=== PATIENT | female | born 1990 | race Caucasian/White ===

== ENCOUNTER 2020-05-17 12:25 | Emergency (ER) | payer OTHER, SELFPAY ==
--- NOTE | 2020-05-17 | ECG_ITS ---
Test Reason : PALPATATIONS Blood Pressure : / mmHG Vent. Rate : 080 BPM Atrial Rate : 080 BPM P-R Int : 152 ms QRS Dur : 086 ms QT Int : 396 ms P-R-T Axes : 063 -24 015 degrees QTc Int : 456 ms Normal sinus rhythm Left axis deviation Nonspecific T wave changes Abnormal ECG When compared with ECG of 21-FEB-2018 18:21, No significant change was found Referred By: Generic ED Physician Electronically Signed By:Lamont Blount
[2020-05-17 13:20] VITALS: BP 145/84; PULSE 101; RESP 16; TEMP 36.9; O2SAT 99; BMI 45.1
[2020-05-17 13:24] VITALS: BP 145/84; PULSE 101; RESP 16; TEMP 36.9; O2SAT 99
--- NOTE | 2020-05-17 13:33 | ED_ITS ---
HPI - Chest Pain General Chief Complaint: Chest Pain Stated Complaint: palpitations Time Seen by Provider: 05/17/20 13:33 Source: patient Mode of arrival: ambulatory Limitations: no limitations History of Present Illness HPI narrative: 30-year-old female with history of hypomanic, hypokalemia, anxiety with history of chest pains in the setting of anxiety presenting with complaint of 3 days of intermittent chest pain. Does report she has had some increase in social stressors. MD complaint: chest pain Onset: during rest Pain radiation: none Related Data Previous Rx's Medication Instructions Recorded hydroxyzine HCl 25 mg PO BID PRN #14 tab 05/17/20 magnesium 250 mg PO DAILY 10 Days #10 tab 05/17/20 Allergies Allergy/AdvReac Type Severity Reaction Status Date / Time No Known Allergies Allergy Unverified 01/26/20 16:46 Review of Systems Review of Systems: Constitutional: No Weight loss, No Fever, No Chills, No Night Sweats, No Fatigue, No Malaise ENT/Mouth: No Hearing loss, No Ear Pain, No Nasal Congestion, No Sinus Pain, No Hoarseness, No sore throat, No Rhinorrhea, No Swallowing Difficulty Eyes: No Eye Pain, No Swelling, No Redness, No Foreign Body, No Discharge, No Vision Changes Cardiovascular: + Chest Pain, No SOB, No Dyspnea on Exertion, No Orthopnea, No Edema, No Palpitations Respiratory: No Cough, No Sputum, No Wheezing, No Smoke Exposure, No Dyspnea Gastrointestinal: No Nausea, No Vomiting, No Diarrhea, No Constipation, No abdominal Pain Genitourinary: no irregular bleeding, No Dysuria, No Urinary Frequency, No Ramses turia, No Urinary Incontinence, No Urgency, No Flank Pain Musculoskeletal: No joint pain, No Myalgias, No Joint Swelling Skin: No Skin Lesions, No rash Neuro: No Weakness, No Numbness, No Paresthesias, No Loss of Consciousness, No Dizziness, No Headache Psych: + Anxiety generally about worldly and social, No Depression, No SI/HI/AH/VH, No Social Issues Heme/Lymph: No Bruising, No Bleeding,No Lymphadenopathy Endocrine: No Polyuria, No Polydipsia, No Temperature Intolerance Yes all other systems are reviewed and are negative [facility] Past Medical History Medical History (Updated 05/18/20 @ 00:00 by Background Daemon) No known health problems Social History Social History Alcohol intake: never Smoking Status: Never smoker Smoked in Last 30 Days: No Use of substances other than those prescribed or required for medical reasons: No Advance Directives: No Advance Directives Information Provided: No Physical Exam Vital Signs: Vital Signs: Last Vital Signs Temp 98.3 F 05/17/20 17:14 Pulse 100 05/17/20 17:14 Resp 16 05/17/20 17:14 BP 145/78 H 05/17/20 17:14 Pulse Ox 99 05/17/20 17:14 Body Mass Index 45.1 Reviewed Const: General: cooperative and healthy appearing; No acute distress or intoxicated appearing Nutritional Appearance: average body habitus Orientation/consciousness: patient oriented x3 HENMT: Head: Yes normal to inspection Ears: hearing grossly normal bilaterally Eyes: General: appearance normal, both eyes and all related structures Visual García: normal visual garcía by confrontation Neck: Neck: Yes normal visual inspection, No positive Brudzinski's sign, No positive Kernig's sign and No tender Thyroid: Thyroid normal Chest: Chest palpation & inspection: normal inspection of the chest Resp: Effort & Inspection: normal respiratory effort Auscultation: clear to auscultation bilaterally Cardio: Jugular venous distension: no JVD Rate: regular rate Rhythm: regular rhythm Heart sounds: S1 normal heart sound present and S2 normal heart sound present GI: Inspection: Yes normal to inspection Percussion: Yes normal to percussion Auscultation: normal bowel sounds : General: Yes no CVA tenderness Back/Spine/Pelvis: Back: no CVA tenderness Skin: General skin exam: no rashes or lesions noted Neuro: General: patient oriented x3 Extrem: General: Yes normal to inspection MDM - Chest Pain MDM Narrative Medical decision making narrative: Perc negative Heart score 0 Has been normal sinus rhythm without ectopy or arrhythmia on the bedside monitor for past 2-1/2 hours Lab work shows mild hypo Mag which she has a history of being followed for this, was post been supplement she ran out. Otherwise workup overall stable per his request something for anxiety bedtime. Differential Diagnosis Differential diagnosis: Likely atypical chest pain, costochondritis and chest pain; Unlikely fracture of rib, pneumothorax, stable angina, unstable angina pectoris, st elevation myocardial infarction and biliary colic Medical Records Data Attestation: I reviewed the patient's medical records. Lab Data Attestation: I reviewed the patient's lab results. Result diagrams: 05/17/20 14:13 05/17/20 14:13 Labs: Lab Results 05/17/20 05/17/20 05/17/20 Range/Units 14:13 14:13 14:13 WBC 11.0 H (4.8-10.8) X10*3/uL RBC 4.29 (4.20-5.50) X10*6/uL Hgb 11.8 L (12.0-16.0) g/dl Hct 36.6 L (37-47) % MCV 85.3 (80-98) fL MCH 27.5 (27.0-33.0) pg MCHC 32.2 (31.0-35.0) g/dl RDW 13.4 (11.0-16.0) % Plt Count 263 (160-400) X10*3/uL MPV 9.5 (9.4-12.3) fL Immature Gran % (Auto) 0.6 H (0.0-0.4) % Neut % (Auto) 76.6 H (45-73) % Lymph % (Auto) 17.8 L (20-40) % Dickenson % (Auto) 4.4 (2-11) % Eos % (Auto) 0.3 (0-4) % Baso % (Auto) 0.3 (0-2) % Lymph # (Auto) 2.0 (1.2-4.9) X10*3/uL Dickenson # (Auto) 0.5 (0.1-1.2) X10*3/uL Eos # (Auto) 0.0 (0.0-0.4) X10*3/uL Baso # (Auto) 0.0 (0.0-0.2) X10*3/uL Abs Immat Gran (auto) 0.07 H (0.00-0.03) X10*3/uL Absolute Neuts (auto) 8.4 H (2.0-8.3) X10*3/uL Absolute Nucleated RBC 0.000 (0.0-0.012) X10*3/uL Nucleated RBC % (auto) 0.0 (0.0-0.2) /100WBC Sodium 142 (135-145) mmol/L Potassium 3.5 (3.3-5.1) mmol/l Chloride 106 (96-108) mmol/L Carbon Dioxide 26 (22-29) mmol/L Anion Gap 14 (12-20) BUN 9 (9-16) mg/dL Creatinine 0.61 (0.5-1.4) mg/dL Estim Creat Clear Calc 166.9 Estimated GFR > 60 Random Glucose 87 (60-115) mg/dL Calcium 9.0 (8.4-10.2) mg/dL Magnesium 1.4 L* (1.6-2.6) mg/dL Total Bilirubin 0.5 (0.0-1.0) mg/dL AST 21 (5-31) U/L ALT 17 (0-31) U/L Alkaline Phosphatase 73 (39-117) U/L Troponin I High Sens < 3.5 (<3.5-17.0) ng/L Total Protein 7.7 (6.5-8.0) g/dL Albumin 4.2 (3.5-5.0) g/dL Urine Color Urine Appearance Urine pH (5.0-8.0) Ur Specific Scheller (1.005-1.025) Urine Protein (NEG-TRACE) MG/DL Urine Glucose (UA) (NEG) MG/DL Urine Ketones (NEG) MG/DL Urine Blood (NEG) Urine Nitrite (NEG) Ur Leukocyte Esterase (NEG) Urine RBC (0) /HPF Urine WBC (0-4) /HPF Ur Squamous Epith Cells /LPF Urine Bacteria /LPF Urine Test (NEGATIVE) Urine Opiates Screen (Not Detect) Ur Barbiturates Screen (Not Detect) Ur Phencyclidine Scrn (Not Detect) Ur Amphetamines Screen (Not Detect) U Benzodiazepines Scrn (Not Detect) Urine Cocaine Screen (Not Detect) U Marijuana (THC) Screen (Not Detect) Coronavirus (PCR) (Negative) Influenza Type A (PCR) (Negative) Influenza Type B (PCR) (Negative) RSV RNA Qual (PCR) (Negative) 05/17/20 05/17/20 05/17/20 Range/Units 14:13 14:14 14:14 WBC (4.8-10.8) X10*3/uL RBC (4.20-5.50) X10*6/uL Hgb (12.0-16.0) g/dl Hct (37-47) % MCV (80-98) fL MCH (27.0-33.0) pg MCHC (31.0-35.0) g/dl RDW (11.0-16.0) % Plt Count (160-400) X10*3/uL MPV (9.4-12.3) fL Immature Gran % (Auto) (0.0-0.4) % Neut % (Auto) (45-73) % Lymph % (Auto) (20-40) % Dickenson % (Auto) (2-11) % Eos % (Auto) (0-4) % Baso % (Auto) (0-2) % Lymph # (Auto) (1.2-4.9) X10*3/uL Dickenson # (Auto) (0.1-1.2) X10*3/uL Eos # (Auto) (0.0-0.4) X10*3/uL Baso # (Auto) (0.0-0.2) X10*3/uL Abs Immat Gran (auto) (0.00-0.03) X10*3/uL Absolute Neuts (auto) (2.0-8.3) X10*3/uL Absolute Nucleated RBC (0.0-0.012) X10*3/uL Nucleated RBC % (auto) (0.0-0.2) /100WBC Sodium (135-145) mmol/L Potassium (3.3-5.1) mmol/l Chloride (96-108) mmol/L Carbon Dioxide (22-29) mmol/L Anion Gap (12-20) BUN (9-16) mg/dL Creatinine (0.5-1.4) mg/dL Estim Creat Clear Calc Estimated GFR Random Glucose (60-115) mg/dL Calcium (8.4-10.2) mg/dL Magnesium (1.6-2.6) mg/dL Total Bilirubin (0.0-1.0) mg/dL AST (5-31) U/L ALT (0-31) U/L Alkaline Phosphatase (39-117) U/L Troponin I High Sens (<3.5-17.0) ng/L Total Protein (6.5-8.0) g/dL Albumin (3.5-5.0) g/dL Urine Color RED Urine Appearance CLOUDY Urine pH 6.0 (5.0-8.0) Ur Specific Scheller 1.010 (1.005-1.025) Urine Protein 1+ H (NEG-TRACE) MG/DL Urine Glucose (UA) NEG (NEG) MG/DL Urine Ketones NEG (NEG) MG/DL Urine Blood 3+ H (NEG) Urine Nitrite NEG (NEG) Ur Leukocyte Esterase TRACE H (NEG) Urine RBC 50-75 H (0) /HPF Urine WBC 5-9 H (0-4) /HPF Ur Squamous Epith Cells 1+ /LPF Urine Bacteria NONE /LPF Urine Test NEGATIVE (NEGATIVE) Urine Opiates Screen Not Detected (Not Detect) Ur Barbiturates Screen Not Detected (Not Detect) Ur Phencyclidine Scrn Not Detected (Not Detect) Ur Amphetamines Screen Not Detected (Not Detect) U Benzodiazepines Scrn Not Detected (Not Detect) Urine Cocaine Screen Not Detected (Not Detect) U Marijuana (THC) Screen Not Detected (Not Detect) Coronavirus (PCR) NEGATIVE (Negative) Influenza Type A (PCR) NEGATIVE (Negative) Influenza Type B (PCR) NEGATIVE (Negative) RSV RNA Qual (PCR) NEGATIVE (Negative) Imaging Data Chest x-ray: Radiologist's impression: [place] [id number] XRay Report Signed Patient: Saba IsabelMR#: [id number] : 1990Acct:[id number] Age/Sex: 30 / FADM Date: 05/17/20 Loc: .ED Attending Dr: Ordering Physician: Alberto Young NP Date of Service: 05/17/20 Procedure(s): XR chest 1V Accession Number(s): [id number] cc: Alberto Young COORDINATE MEASURING EQUIPMENT OPERATOR~ EXAMINATION: XR CHEST CLINICAL INFORMATION: Chest pain COMPARISON: 02/21/2018 TECHNIQUE: Frontal view of the chest was obtained. FINDINGS: Lungs are hypoinflated. Allowing for that, no significant abnormalities seen involving the heart lungs mediastinum or bony thorax. XR/XR chest 1V IMPRESSION: No acute intrathoracic disease. Dictated By:CINDY ALLEN MD Signed By:<Electronically signed by CINDY ALLEN MD in OV>05/17/20 1404 DD/ 1338 TD/TT: [employer] Estimator: ELIANA ECG Data ECG #1: Interpretation: Normal sinus rhythm Left axis deviation Nonspecific T wave changes Abnormal ECG When compared with ECG of 21-FEB-2018 18:21, No significant change was found Discharge Plan Discharge Clinical Impression: Atypical chest pain, Hypomagnesemia, Anxiety Patient Disposition: Home, Self-Care Instructions: Chest Pain (ED), Hypomagnesemia (ED) Additional Instructions: Drink plenty fluids Take medication prescribed Avoid any triggers as discussed Follow-up as discussed Return if any concerns or worsening symptoms Thank you Prescriptions: New magnesium 250 mg tablet 250 mg PO DAILY 10 Days Qty: 10 RF: 0 hydroxyzine HCl 25 mg tablet 25 mg PO BID PRN (Reason: anxiety) Qty: 14 RF: 0 Referrals: Brendan Gonzales PA [Primary Care Provider] - 1 week Interventions: ED Discharge Assessment Last Done: 05/17/20 17:15 Discharge Date/Time: 05/17/20 17:29
--- NOTE | 2020-05-17 13:38 | XR_ITS ---
EXAMINATION: XR CHEST CLINICAL INFORMATION: Chest pain COMPARISON: 02/21/2018 TECHNIQUE: Frontal view of the chest was obtained. FINDINGS: Lungs are hypoinflated. Allowing for that, no significant abnormalities seen involving the heart lungs mediastinum or bony thorax. XR/XR chest 1V IMPRESSION: No acute intrathoracic disease.
[2020-05-17 14:27] LABS: Basophils Percent Auto 0.3 % (0-2); Eosinophils Percent Auto 0.3 % (0-4); Hematocrit 36.6 % (37-47); Hemoglobin 11.8 g/dl (12.0-16.0); Imm Gran Abs Auto 0.07 X10*3/uL (0.00-0.03); Imm Gran Pct Auto 0.6 % (0.0-0.4); Lymphocytes Percent Auto 17.8 % (20-40); MANUAL DIFF FLAG NO; Mean Corpuscular HGB Conc 32.2 g/dl (31.0-35.0); Mean Corpuscular Hemoglobin 27.5 pg (27.0-33.0); Mean Corpuscular Volume 85.3 fL (80-98); Mean Platelet Volume 9.5 fL (9.4-12.3); Monocytes Absolute Auto 0.5 X10*3/uL (0.1-1.2); Monocytes Percent Auto 4.4 % (2-11); Neutrophils Absolute Auto 8.4 X10*3/uL (2.0-8.3); Neutrophils Percent Auto 76.6 % (45-73); Platelet Count 263 X10*3/uL (160-400); Red Blood Count 4.29 X10*6/uL (4.20-5.50); Red Cell Distribution Width 13.4 % (11.0-16.0)
[2020-05-17 14:28] LABS: Glucose Urine UA NEG (NEG); Leukocyte Esterase Urine TRACE (NEG); Nitrite Urine NEG (NEG); Urine Blood 3+ (NEG); Urine Ketones NEG (NEG); Urine Protein 1+ MG/DL (NEG-TRACE)
[2020-05-17 14:33] LABS: UPreg QC Valid YES; Urine Pregnancy NEGATIVE (NEGATIVE)
[2020-05-17 14:36] LABS: Appearance Urine CLOUDY; Color Urine RED
[2020-05-17 14:37] LABS: RBC Urine 50-75 /HPF (0); Squamous Epithelial Cell Urine 1+ /LPF
[2020-05-17 14:52] LABS: Troponin-I High Sensitivity < 3.5 ng/L (<3.5-17.0)
[2020-05-17 14:59] LABS: Alanine Aminotransferase 17 U/L (0-31); Albumin Level 4.2 g/dL (3.5-5.0); Alkaline Phosphatase 73 U/L (39-117); Anion Gap 14 (12-20); Aspartate Amino Transferase 21 U/L (5-31); Bilirubin Total 0.5 mg/dL (0.0-1.0); Blood Urea Nitrogen 9 mg/dL (9-16); Carbon Dioxide 26 mmol/L (22-29); Chloride 106 mmol/L (96-108); Creatinine Clr Calc Pharmacy 166.9; Estimated Glomerular Filt Rate > 60; Glucose Random 87 mg/dL (60-115); Magnesium 1.4 mg/dL (1.6-2.6); Potassium 3.5 mmol/l (3.3-5.1); Sodium 142 mmol/L (135-145); Total Protein 7.7 g/dL (6.5-8.0)
[2020-05-17 15:00] LABS: Influenza A PCR NEGATIVE (Negative); Influenza B PCR NEGATIVE (Negative); Resp Syncy Virus RNA Qual PCR NEGATIVE (Negative); SARS COV2 PCR INHOUSE NEGATIVE (Negative)
[2020-05-17 15:03] LABS: Amphetamine Screen Urine Not Detected (Not Detect); Benzodiazepines Screen Urine Not Detected (Not Detect); Cannabinoid Screen Urine Not Detected (Not Detect); Cocaine Screen Urine Not Detected (Not Detect); Opiate Screen Urine Not Detected (Not Detect); Phencyclidine Screen Urine Not Detected (Not Detect)
[2020-05-17 15:05] LABS: Barbiturates, Urine Not Detected (Not Detect)
[2020-05-17 15:34] VITALS: BP 139/79; PULSE 93; RESP 16; TEMP 36.8; O2SAT 99
[2020-05-17 17:14] VITALS: BP 145/78; PULSE 100; RESP 16; TEMP 36.8; O2SAT 99
== END 2020-05-17 17:29 | disposition home or self-care (01) ==
PROVIDERS: Nurse Practitioner Primary Care; Emergency Provider Emergency Medicine Emergency Medical Services; PCP Physician Assistant Medical
DX: R07.89 Other chest pain (principal); E83.42 Hypomagnesemia; F41.9 Anxiety disorder, unspecified; Z20.828 Contact with and (suspected) exposure to other viral communicable diseases
CPT/HCPCS: 0241U; 36415; 71045; 80053; 80307; 81001; 81025; 83735; 84484; 85025; 87086; 93005; 99284

== ENCOUNTER 2020-06-12 19:02 | Emergency (ER) | payer OTHER, MEDICAID, SELFPAY ==
--- NOTE | 2020-06-12 19:10 | ECG_ITS ---
Test Reason : CHEST PALP Blood Pressure : / mmHG Vent. Rate : 088 BPM Atrial Rate : 088 BPM P-R Int : 144 ms QRS Dur : 086 ms QT Int : 380 ms P-R-T Axes : 050 -23 032 degrees QTc Int : 459 ms Normal sinus rhythm Low voltage QRS Borderline ECG When compared with ECG of 17-MAY-2020 12:33, No significant change was found Referred By: Irineo Jauregui Electronically Signed By:SIDNEY LEE MD
--- NOTE | 2020-06-12 19:10 | XR_ITS ---
EXAMINATION: XR CHEST CLINICAL INFORMATION: Palpitations COMPARISON: 05/17/2020 TECHNIQUE: Frontal view of the chest was obtained. FINDINGS: The cardiomediastinal silhouette is within normal limits. The lungs are well expanded. There is no focal consolidation, edema, or effusion. No pneumothorax. No acute osseous abnormality. XR/XR chest 1V IMPRESSION: No acute process seen.
--- NOTE | 2020-06-12 19:13 | ED.GENADULT ---
HPI - General Adult General Chief complaint: Arrhythmia/Palpitations <CARISSA Carrasquillo - Last Filed: 06/12/20 19:14> Stated complaint: chest palpitations <CARISSA Carrasquillo - Last Filed: 06/12/20 19:14> Time Seen by Provider: 06/12/20 19:10 <CARISSA Carrasquillo - Last Filed: 06/12/20 19:14> Source: patient <Nat Arreola MD - Last Filed: 06/13/20 00:39> Mode of arrival: ambulatory <Nat Arreola MD - Last Filed: 06/13/20 00:39> History of Present Illness HPI narrative: This is a 30-year-old female with history palpitations and states that she had an episode this evening without associated headaches, dizziness, shortness of breath, nausea, or diaphoresis that lasted for a very brief period time. Patient was seen here in the emergency department approximately 2 weeks ago for the same and has followed up with her primary care provider who prescribed her with hydroxyzine as well as referring her to Cardiology. Cardiology placed her on a Holter monitor which she turned in this past Thursday and has not been informed of results. In addition, her primary care provider also gave her referral to speak with a therapist. Patient does have anxiety over taking medications which has prevented her from taking the hydroxyzine when she is experiencing these palpitations. She denies any caffeinated products. No recent history of long car rides or plane trips, hemoptysis, estrogen supplementation, personal history of cancer, recent surgery or bed bound state, calf pain or calf swelling. Otherwise, patient denies new cough, sore throat, was tested for COVID-19 2 weeks ago and found to be negative. Patient is noted to have a chronic issue with hypo magnesemia for which she takes iiyd-tji-btqiyed magnesium oxide but is noted to have been low levels to include today as well as 2 weeks ago. <Nat Arreola MD - Last Filed: 06/13/20 00:39> Related Data Home medications: Previous Rx's Medication Instructions Recorded hydroxyzine HCl 25 mg PO BID PRN #14 tab 05/17/20 magnesium 250 mg PO DAILY 10 Days #10 tab 05/17/20 <CARISSA Carrasquillo - Last Filed: 06/12/20 19:14> Allergies/adverse reactions: Allergies Allergy/AdvReac Type Severity Reaction Status Date / Time No Known Allergies Allergy Verified 06/12/20 21:00 <CARISSA Carrasquillo - Last Filed: 06/12/20 19:14> Review of Systems Review of Systems: Pertinent positives and negatives as stated in HPI 10 point review systems is otherwise negative. <Nat Arreola MD - Last Filed: 06/13/20 00:39> PMFSH Past Medical History Source: nursing notes reviewed <Nat Arreola MD - Last Filed: 06/13/20 00:39> Medical History: Medical History (Updated 06/13/20 @ 00:38 by Nat Arreola MD) Anxiety Hypomagnesemia No known health problems Palpitations <CARISSA Carrasquillo - Last Filed: 06/12/20 19:14> Social History Social History: Social History Alcohol intake: never Smoking Status: Never smoker Advance Directives: No Advance Directives Information Provided: Yes <CARISSA Carrasquillo - Last Filed: 06/12/20 19:14> Physical Exam Vital Signs: Vital Signs: Last Vital Signs Temp 98.2 F 06/12/20 20:54 Pulse 84 06/12/20 23:45 Resp 12 06/12/20 23:45 BP 128/58 L 06/12/20 23:45 Pulse Ox 99 06/12/20 23:45 Body Mass Index 44.2 <CARISSA Carrasquillo - Last Filed: 06/12/20 19:14> Vital Signs: Last Vital Signs Temp 98.2 F 06/12/20 20:54 Pulse 84 06/12/20 23:45 Resp 12 06/12/20 23:45 BP 128/58 L 06/12/20 23:45 Pulse Ox 99 06/12/20 23:45 Body Mass Index 44.2 <Nat Arreola MD - Last Filed: 06/13/20 00:39> VITAL SIGNS: Reviewed. GENERAL: Well developed, well nourished, in no acute distress. NECK: Supple, no adenopathy LUNGS: Normal breath sounds. SpO2<99> CARDIOVASCULAR: Regular rate and rhythm without noted murmurs, no JVD or lower extremity edema. ABDOMEN: Obese, Soft, non-tender, non-distended with bowel sounds. EXTREMITIES: No cyanosis, clubbing or edema. NEUROLOGIC: Alert and oriented x 4. <Nat Arreola MD - Last Filed: 06/13/20 00:39> Course Course Course Narrative: 30 yold female presents to the ED for palpitations for the past 2 weeks. Rapid medical screening will be done. History, physical exam, and decision making will be done by ED provider. <CARISSA Carrasquillo - Last Filed: 06/12/20 19:14> This is a 30-year-old female with history and clinical presentation consistent with anxiety, but infection, anemia, cardiac ischemia is ruled out. Doubt PE given history an absence of clinical findings. Review of all investigations yields no acute findings other than a very mild elevation of D-dimer which is considered to be insignificant, however shared decision making was held with the patient and risks and benefits were reviewed given the low likelihood of PE. On re-evaluation after receiving magnesium sulfate for low magnesium level, patient has decided she would like to proceed with a CTA of the chest to rule out PE. There is no evidence of right heart strain on EKG, no elevated temperature, no associated shortness of breath, history is inconsistent with etiologies/risks to contribute to a PE or DVT. <Nat Arreola MD - Last Filed: 06/13/20 00:39> Reevaluation(s) Reevaluation #1: Patient unable to tolerate the CT exam. Will provide 0.5 mg of Ativan and re-attempt. <Nat Arreola MD - Last Filed: 06/13/20 00:39> Time: 23:33 <Nat Arreola MD - Last Filed: 06/13/20 00:39> Reevaluation #2: On re-evaluation magnesium is within normal limits and patient declines CT exam despite being offered Ativan as she states she is far too anxious to accept the Ativan. She was reassured that there is low likelihood of PE but that it is not 0 %. <Nat Arreola MD - Last Filed: 06/13/20 00:39> Time: 00:36 <Nat Arreola MD - Last Filed: 06/13/20 00:39> Medical Decision Making Lab Data Result diagrams: : 06/12/20 19:21 06/12/20 19:21 <CARISSA Carrasquillo - Last Filed: 06/12/20 19:14> Labs: Lab Results 06/12/20 06/12/20 06/12/20 Range/Units 19:21 19:21 19:21 WBC 11.9 H (4.8-10.8) X10*3/uL RBC 4.41 (4.20-5.50) X10*6/uL Hgb 12.0 (12.0-16.0) g/dl Hct 37.7 (37-47) % MCV 85.5 (80-98) fL MCH 27.2 (27.0-33.0) pg MCHC 31.8 (31.0-35.0) g/dl RDW 13.5 (11.0-16.0) % Plt Count 267 (160-400) X10*3/uL MPV 9.6 (9.4-12.3) fL Immature Gran % (Auto) 0.3 (0.0-0.4) % Neut % (Auto) 66.3 (45-73) % Lymph % (Auto) 26.6 (20-40) % [place] % (Auto) 5.8 (2-11) % Eos % (Auto) 0.8 (0-4) % Baso % (Auto) 0.2 (0-2) % Lymph # (Auto) 3.2 (1.2-4.9) X10*3/uL [place] # (Auto) 0.7 (0.1-1.2) X10*3/uL Eos # (Auto) 0.1 (0.0-0.4) X10*3/uL Baso # (Auto) 0.0 (0.0-0.2) X10*3/uL Abs Immat Gran (auto) 0.03 (0.00-0.03) X10*3/uL Absolute Neuts (auto) 7.9 (2.0-8.3) X10*3/uL Absolute Nucleated RBC 0.000 (0.0-0.012) X10*3/uL Nucleated RBC % (auto) 0.0 (0.0-0.2) /100WBC PT 15.8 H (10.8-13.0) SEC INR 1.3 H (0.9-1.1) APTT 35.6 (24.1-38.0) SEC D-Dimer 236 NG/ML Sodium 141 (135-145) mmol/L Potassium 3.8 (3.3-5.1) mmol/L Chloride 104 (96-108) mmol/L Carbon Dioxide 29 (22-29) mmol/L Anion Gap 12 (12-20) BUN 10 (9-16) mg/dL Creatinine 0.68 (0.5-1.4) mg/dL Estim Creat Clear Calc TNP Estimated GFR > 60 Random Glucose 95 (60-115) mg/dL Calcium 9.2 (8.4-10.2) mg/dL Magnesium 1.5 L (1.6-2.6) mg/dL Total Bilirubin 0.2 (0.0-1.0) mg/dL AST 20 (5-31) U/L ALT 14 (0-31) U/L Alkaline Phosphatase 75 (39-117) U/L Troponin I High Sens (<3.5-17.0) ng/L Total Protein 7.5 (6.5-8.0) g/dL Albumin 4.1 (3.5-5.0) g/dL TSH 3.66 (0.32-4.0) uIU/mL Beta HCG, Quant < 2 mIU/mL Urine Color Urine Appearance Urine pH (5.0-8.0) Ur Specific [place] (1.005-1.025) Urine Protein (NEG-TRACE) MG/DL Urine Glucose (UA) (NEG) MG/DL Urine Ketones (NEG) MG/DL Urine Blood (NEG) Urine Nitrite (NEG) Ur Leukocyte Esterase (NEG) Urine RBC (0) /HPF Urine WBC (0-4) /HPF Ur Squamous Epith Cells /LPF Urine Bacteria /LPF Urine Test (NEGATIVE) 06/12/20 06/12/20 06/12/20 Range/Units 19:21 22:47 23:38 WBC (4.8-10.8) X10*3/uL RBC (4.20-5.50) X10*6/uL Hgb (12.0-16.0) g/dl Hct (37-47) % MCV (80-98) fL MCH (27.0-33.0) pg MCHC (31.0-35.0) g/dl RDW (11.0-16.0) % Plt Count (160-400) X10*3/uL MPV (9.4-12.3) fL Immature Gran % (Auto) (0.0-0.4) % Neut % (Auto) (45-73) % Lymph % (Auto) (20-40) % [place] % (Auto) (2-11) % Eos % (Auto) (0-4) % Baso % (Auto) (0-2) % Lymph # (Auto) (1.2-4.9) X10*3/uL [place] # (Auto) (0.1-1.2) X10*3/uL Eos # (Auto) (0.0-0.4) X10*3/uL Baso # (Auto) (0.0-0.2) X10*3/uL Abs Immat Gran (auto) (0.00-0.03) X10*3/uL Absolute Neuts (auto) (2.0-8.3) X10*3/uL Absolute Nucleated RBC (0.0-0.012) X10*3/uL Nucleated RBC % (auto) (0.0-0.2) /100WBC PT (10.8-13.0) SEC INR (0.9-1.1) APTT (24.1-38.0) SEC D-Dimer NG/ML Sodium (135-145) mmol/L Potassium (3.3-5.1) mmol/L Chloride (96-108) mmol/L Carbon Dioxide (22-29) mmol/L Anion Gap (12-20) BUN (9-16) mg/dL Creatinine (0.5-1.4) mg/dL Estim Creat Clear Calc Estimated GFR Random Glucose (60-115) mg/dL Calcium (8.4-10.2) mg/dL Magnesium 1.8 (1.6-2.6) mg/dL Total Bilirubin (0.0-1.0) mg/dL AST (5-31) U/L ALT (0-31) U/L Alkaline Phosphatase (39-117) U/L Troponin I High Sens < 3.5 (<3.5-17.0) ng/L Total Protein (6.5-8.0) g/dL Albumin (3.5-5.0) g/dL TSH (0.32-4.0) uIU/mL Beta HCG, Quant mIU/mL Urine Color YELLOW Urine Appearance HAZY Urine pH 7.5 (5.0-8.0) Ur Specific [place] 1.020 (1.005-1.025) Urine Protein NEG (NEG-TRACE) MG/DL Urine Glucose (UA) NEG (NEG) MG/DL Urine Ketones NEG (NEG) MG/DL Urine Blood 3+ H (NEG) Urine Nitrite NEG (NEG) Ur Leukocyte Esterase NEG (NEG) Urine RBC 76-150 H (0) /HPF Urine WBC 0 (0-4) /HPF Ur Squamous Epith Cells 1+ /LPF Urine Bacteria 1+ /LPF Urine Test NEGATIVE (NEGATIVE) <CARISSA Carrasquillo - Last Filed: 06/12/20 19:14> Lab Results 06/12/20 06/12/20 06/12/20 Range/Units 19:21 19:21 19:21 WBC 11.9 H (4.8-10.8) X10*3/uL RBC 4.41 (4.20-5.50) X10*6/uL Hgb 12.0 (12.0-16.0) g/dl Hct 37.7 (37-47) % MCV 85.5 (80-98) fL MCH 27.2 (27.0-33.0) pg MCHC 31.8 (31.0-35.0) g/dl RDW 13.5 (11.0-16.0) % Plt Count 267 (160-400) X10*3/uL MPV 9.6 (9.4-12.3) fL Immature Gran % (Auto) 0.3 (0.0-0.4) % Neut % (Auto) 66.3 (45-73) % Lymph % (Auto) 26.6 (20-40) % [place] % (Auto) 5.8 (2-11) % Eos % (Auto) 0.8 (0-4) % Baso % (Auto) 0.2 (0-2) % Lymph # (Auto) 3.2 (1.2-4.9) X10*3/uL [place] # (Auto) 0.7 (0.1-1.2) X10*3/uL Eos # (Auto) 0.1 (0.0-0.4) X10*3/uL Baso # (Auto) 0.0 (0.0-0.2) X10*3/uL Abs Immat Gran (auto) 0.03 (0.00-0.03) X10*3/uL Absolute Neuts (auto) 7.9 (2.0-8.3) X10*3/uL Absolute Nucleated RBC 0.000 (0.0-0.012) X10*3/uL Nucleated RBC % (auto) 0.0 (0.0-0.2) /100WBC PT 15.8 H (10.8-13.0) SEC INR 1.3 H (0.9-1.1) APTT 35.6 (24.1-38.0) SEC D-Dimer 236 NG/ML Sodium 141 (135-145) mmol/L Potassium 3.8 (3.3-5.1) mmol/L Chloride 104 (96-108) mmol/L Carbon Dioxide 29 (22-29) mmol/L Anion Gap 12 (12-20) BUN 10 (9-16) mg/dL Creatinine 0.68 (0.5-1.4) mg/dL Estim Creat Clear Calc TNP Estimated GFR > 60 Random Glucose 95 (60-115) mg/dL Calcium 9.2 (8.4-10.2) mg/dL Magnesium 1.5 L (1.6-2.6) mg/dL Total Bilirubin 0.2 (0.0-1.0) mg/dL AST 20 (5-31) U/L ALT 14 (0-31) U/L Alkaline Phosphatase 75 (39-117) U/L Troponin I High Sens (<3.5-17.0) ng/L Total Protein 7.5 (6.5-8.0) g/dL Albumin 4.1 (3.5-5.0) g/dL TSH 3.66 (0.32-4.0) uIU/mL Beta HCG, Quant < 2 mIU/mL Urine Color Urine Appearance Urine pH (5.0-8.0) Ur Specific [place] (1.005-1.025) Urine Protein (NEG-TRACE) MG/DL Urine Glucose (UA) (NEG) MG/DL Urine Ketones (NEG) MG/DL Urine Blood (NEG) Urine Nitrite (NEG) Ur Leukocyte Esterase (NEG) Urine RBC (0) /HPF Urine WBC (0-4) /HPF Ur Squamous Epith Cells /LPF Urine Bacteria /LPF Urine Test (NEGATIVE) 06/12/20 06/12/20 06/12/20 Range/Units 19:21 22:47 23:38 WBC (4.8-10.8) X10*3/uL RBC (4.20-5.50) X10*6/uL Hgb (12.0-16.0) g/dl Hct (37-47) % MCV (80-98) fL MCH (27.0-33.0) pg MCHC (31.0-35.0) g/dl RDW (11.0-16.0) % Plt Count (160-400) X10*3/uL MPV (9.4-12.3) fL Immature Gran % (Auto) (0.0-0.4) % Neut % (Auto) (45-73) % Lymph % (Auto) (20-40) % [place] % (Auto) (2-11) % Eos % (Auto) (0-4) % Baso % (Auto) (0-2) % Lymph # (Auto) (1.2-4.9) X10*3/uL [place] # (Auto) (0.1-1.2) X10*3/uL Eos # (Auto) (0.0-0.4) X10*3/uL Baso # (Auto) (0.0-0.2) X10*3/uL Abs Immat Gran (auto) (0.00-0.03) X10*3/uL Absolute Neuts (auto) (2.0-8.3) X10*3/uL Absolute Nucleated RBC (0.0-0.012) X10*3/uL Nucleated RBC % (auto) (0.0-0.2) /100WBC PT (10.8-13.0) SEC INR (0.9-1.1) APTT (24.1-38.0) SEC D-Dimer NG/ML Sodium (135-145) mmol/L Potassium (3.3-5.1) mmol/L Chloride (96-108) mmol/L Carbon Dioxide (22-29) mmol/L Anion Gap (12-20) BUN (9-16) mg/dL Creatinine (0.5-1.4) mg/dL Estim Creat Clear Calc Estimated GFR Random Glucose (60-115) mg/dL Calcium (8.4-10.2) mg/dL Magnesium 1.8 (1.6-2.6) mg/dL Total Bilirubin (0.0-1.0) mg/dL AST (5-31) U/L ALT (0-31) U/L Alkaline Phosphatase (39-117) U/L Troponin I High Sens < 3.5 (<3.5-17.0) ng/L Total Protein (6.5-8.0) g/dL Albumin (3.5-5.0) g/dL TSH (0.32-4.0) uIU/mL Beta HCG, Quant mIU/mL Urine Color YELLOW Urine Appearance HAZY Urine pH 7.5 (5.0-8.0) Ur Specific [place] 1.020 (1.005-1.025) Urine Protein NEG (NEG-TRACE) MG/DL Urine Glucose (UA) NEG (NEG) MG/DL Urine Ketones NEG (NEG) MG/DL Urine Blood 3+ H (NEG) Urine Nitrite NEG (NEG) Ur Leukocyte Esterase NEG (NEG) Urine RBC 76-150 H (0) /HPF Urine WBC 0 (0-4) /HPF Ur Squamous Epith Cells 1+ /LPF Urine Bacteria 1+ /LPF Urine Test NEGATIVE (NEGATIVE) <Nat Arreola MD - Last Filed: 06/13/20 00:39> ECG Data Attestation: I personally reviewed and interpreted this ECG as follows: <Nat Arreola MD - Last Filed: 06/13/20 00:39> Prior ECG tracings: available for review (05/17/2020 no acute changes on comparison) <Nat Arreola MD - Last Filed: 06/13/20 00:39> Interpretation: Normal sinus rhythm, HR-88, AL/QRS/QTC are within normal limits. No evidence of right heart strain <Nat Arreola MD - Last Filed: 06/13/20 00:39> Discharge Plan Discharge Clinical Impression: Palpitations, Anxiety, Hypomagnesemia <CARISSA Carrasquillo - Last Filed: 06/12/20 19:14> Patient Disposition: Home, Self-Care <CARISSA Carrasquillo - Last Filed: 06/12/20 19:14> Instructions: Heart Palpitations (ED), Anxiety (ED) <CARISSA Carrasquillo - Last Filed: 06/12/20 19:14> Additional Instructions: Continue all home medications as prescribed. Please continue your follow-up with your primary care provider as well as your retail business analyst for further outpatient workup. <CARISSA Carrasquillo - Last Filed: 06/12/20 19:14> Prescriptions: No Action magnesium 250 mg tablet 250 mg PO DAILY 10 Days Qty: 10 RF: 0 hydroxyzine HCl 25 mg tablet 25 mg PO BID PRN (Reason: anxiety) Qty: 14 RF: 0 <CARISSA Carrasquillo - Last Filed: 06/12/20 19:14> Referrals: Physician,Unknown [Primary Care Provider] - 2 days <CARISSA Carrasquillo - Last Filed: 06/12/20 19:14>
[2020-06-12 19:29] LABS: Basophils Percent Auto 0.2 % (0-2); Eosinophils Absolute Auto 0.1 X10*3/uL (0.0-0.4); Eosinophils Percent Auto 0.8 % (0-4); Hematocrit 37.7 % (37-47); Imm Gran Abs Auto 0.03 X10*3/uL (0.00-0.03); Imm Gran Pct Auto 0.3 % (0.0-0.4); Lymphocytes Absolute Auto 3.2 X10*3/uL (1.2-4.9); Lymphocytes Percent Auto 26.6 % (20-40); MANUAL DIFF FLAG NO; Mean Corpuscular HGB Conc 31.8 g/dl (31.0-35.0); Mean Corpuscular Hemoglobin 27.2 pg (27.0-33.0); Mean Corpuscular Volume 85.5 fL (80-98); Mean Platelet Volume 9.6 fL (9.4-12.3); Monocytes Absolute Auto 0.7 X10*3/uL (0.1-1.2); Monocytes Percent Auto 5.8 % (2-11); Neutrophils Absolute Auto 7.9 X10*3/uL (2.0-8.3); Neutrophils Percent Auto 66.3 % (45-73); Platelet Count 267 X10*3/uL (160-400); Red Blood Count 4.41 X10*6/uL (4.20-5.50); Red Cell Distribution Width 13.5 % (11.0-16.0); White Blood Count 11.9 X10*3/uL (4.8-10.8)
[2020-06-12 19:35] LABS: INTERNATIONAL NORM RATIO 1.3 (0.9-1.1); Prothrombin Time 15.8 SEC (10.8-13.0)
[2020-06-12 19:38] LABS: D Dimer 236 NG/ML; Partial Thromboplastin Time 35.6 SEC (24.1-38.0)
[2020-06-12 19:54] LABS: Alanine Aminotransferase 14 U/L (0-31); Albumin Level 4.1 g/dL (3.5-5.0); Alkaline Phosphatase 75 U/L (39-117); Anion Gap 12 (12-20); Aspartate Amino Transferase 20 U/L (5-31); Bilirubin Total 0.2 mg/dL (0.0-1.0); Blood Urea Nitrogen 10 mg/dL (9-16); Calcium 9.2 mg/dL (8.4-10.2); Carbon Dioxide 29 mmol/L (22-29); Chloride 104 mmol/L (96-108); Estimated Glomerular Filt Rate > 60; Glucose Random 95 mg/dL (60-115); Magnesium 1.5 mg/dL (1.6-2.6); Potassium 3.8 mmol/L (3.3-5.1); Sodium 141 mmol/L (135-145); Total Protein 7.5 g/dL (6.5-8.0)
[2020-06-12 19:58] LABS: Troponin-I High Sensitivity < 3.5 ng/L (<3.5-17.0)
[2020-06-12 20:15] LABS: HCG Quantitative < 2 mIU/mL; Thyroid Stimulating Hormone 3.66 uIU/mL (0.32-4.0)
[2020-06-12 20:54] VITALS: BP 138/69; PULSE 90; RESP 14; TEMP 36.8; O2SAT 99; BMI 44.2
[2020-06-12 21:34] VITALS: PULSE 97
--- NOTE | 2020-06-12 21:34 | PC.NURSE ---
ekg was obtained in waiting room
[2020-06-12] MEDS: hydrOXYzine HCL 25 MG TABLET PO (22:14)
[2020-06-12] MEDS: Magnesium Sulfate/D5W 1 GM/100 ML PIGGYBACK IV (22:15)
[2020-06-12 22:57] LABS: Appearance Urine HAZY; Color Urine YELLOW; Glucose Urine UA NEG (NEG); Leukocyte Esterase Urine NEG (NEG); Nitrite Urine NEG (NEG); PH 7.5 (5.0-8.0); Urine Blood 3+ (NEG); Urine Ketones NEG (NEG); Urine Protein NEG (NEG-TRACE)
[2020-06-12 22:58] LABS: UPreg QC Valid YES
[2020-06-12 22:59] LABS: Urine Pregnancy NEGATIVE (NEGATIVE)
[2020-06-12 23:05] LABS: Bacteria Urine 1+ /LPF; Squamous Epithelial Cell Urine 1+ /LPF; WBC Urine 0 /HPF (0-4)
[2020-06-12] MEDS: 0.9 % Sodium Chloride 1,000 ML 999 ML IV (23:39)
--- NOTE | 2020-06-12 23:42 | PC.NURSE ---
THIS NURSE AT BEDSIDE WHILE PATIENT IS HAVING PALPITATIONS. PVCS NOTED ON MONITOR. DR ROBBINS AWARE.
[2020-06-12 23:45] VITALS: BP 128/58; PULSE 84; RESP 12; O2SAT 99
[2020-06-13 00:05] LABS: Magnesium 1.8 mg/dL (1.6-2.6)
== END 2020-06-13 00:46 | disposition home or self-care (01) ==
PROVIDERS: Physician Assistant; Emergency Provider Student in an Organized Health Care Education/Training Program
DX: R00.2 Palpitations (principal); F41.9 Anxiety disorder, unspecified; E83.42 Hypomagnesemia; Z79.899 Other long term (current) drug therapy
CPT/HCPCS: 36415; 71045; 80053; 81001; 81025; 83735; 84443; 84484; 84702; 85025; 85379; 85610; 85730; 93005; 99284; J3475

== ENCOUNTER 2020-07-16 08:30 | Outpatient (REF) | payer OTHER, SELFPAY | END 2020-07-16 08:31 | disposition home or self-care (01) | LOC: HO.LAB 08:30 | PROVIDERS: Visit Provider Internal Medicine | DX: Z20.822 Contact with and (suspected) exposure to COVID-19 (principal) | CPT/HCPCS: 36415; C9803; U0003; U0005 ==

== ENCOUNTER 2020-10-16 10:16 | Outpatient (REF) | payer OTHER, SELFPAY | END 2020-10-16 10:17 | disposition home or self-care (01) | LOC: HO.LAB 10:16 | PROVIDERS: PCP Physician Assistant Medical; Visit Provider Internal Medicine | DX: Z20.822 Contact with and (suspected) exposure to COVID-19 (principal) | CPT/HCPCS: C9803; U0003; U0005 ==

== ENCOUNTER 2020-10-23 14:07 | Emergency (ER) | payer OTHER, MEDICAID, SELFPAY ==
--- NOTE | ~2020-10-23 | CT_ITS ---
EXAMINATION: CT ANGIOGRAM OF THE CHEST WITH AND WITHOUT CONTRAST (CT PULMONARY ANGIOGRAM FOR PE) CLINICAL INFORMATION: Tachycardia, elevated d-dimer COMPARISON: Chest radiograph 06/12/2020, CTA chest 09/19/2015 TECHNIQUE: Prior to contrast administration, noncontrast localization images were obtained. Subsequently, multidetector volumetric imaging was performed from the thoracic inlet to below the diaphragms following the administration of 71 mL Omnipaque 350 intravenous contrast. No contrast reaction reported Sagittal, coronal, and MIP oblique sagittal reformatted images were obtained on the CT workstation, uploaded to PACS, and reviewed. This CT examination was performed using dose optimization techniques as appropriate, variously including the following: *Automated exposure control *Adjustment of mA and/or kV according to patient size (this includes techniques or standardized protocols for targeted exams where dose is matched to indication/reason for exam; i.e. extremities or head) *Use of iterative reconstruction technique Total exam dose-length product . 49 mGy-cm FINDINGS: Respiratory motion artifact significantly degrades image quality. QUALITY OF STUDY/CONTRAST BOLUS: Satisfactory. PULMONARY ARTERIES: No central or segmental emboli visualized. More distal subsegmental emboli are difficult to exclude given the degree of motion artifact THORACIC AORTA: No aneurysm or dissection. LUNG: Motion artifact in the lungs degrades image quality. There are bilateral patchy consolidative and groundglass opacities. PLEURA: No pleural effusion or pneumothorax. MEDIASTINUM: Normal heart size. No pericardial effusion. No hilar or mediastinal lymphadenopathy. No evidence of septal bowing or right heart strain. CHEST WALL/AXILLA: No axillary or internal mammary lymphadenopathy. OSSEOUS STRUCTURES: No acute or suspicious osseous abnormality. UPPER ABDOMEN: Unremarkable. No reflux of contrast into the hepatic veins to suggest elevated right heart pressures. CT/CT angio chest PE protocol IMPRESSION: Limited exam due to respiratory motion artifact. No central or segmental pulmonary emboli. Bilateral mixed consolidative and groundglass opacities concerning for an underlying infectious process including atypical infectious processes. VTE: negative
[2020-10-23 14:18] VITALS: BP 127/77; PULSE 100; RESP 18; TEMP 36.6; O2SAT 100; BMI 39.8
--- NOTE | 2020-10-23 14:30 | ED_ITS ---
HPI - General Adult General Chief complaint: General Medical Stated complaint: Dizziness, Nausea Time Seen by Provider: 10/23/20 14:30 Related Data Previous Rx's Medication Instructions Recorded hydroxyzine HCl 25 mg PO BID PRN #14 tab 05/17/20 magnesium 250 mg PO DAILY 10 Days #10 tab 05/17/20 Allergies Allergy/AdvReac Type Severity Reaction Status Date / Time No Known Allergies Allergy Verified 06/12/20 21:00 [facility] Past Medical History Medical History (Updated 10/23/20 @ 14:24 by Bernard Porter) Anxiety Hypomagnesemia Palpitations Social History Social History Alcohol intake: never Patient : No Physical Exam Vital Signs: Vital Signs: Last Vital Signs Temp 98 F 10/23/20 14:18 Pulse 57 10/23/20 14:18 Resp 18 10/23/20 14:18 BP 118/58 L 10/23/20 14:18 Pulse Ox 93 10/23/20 14:18 Body Mass Index 47.6 Course Course Course Narrative: -Rapid medical exam. In bathroom had near syncope with nausea/vomiting, drank apple juice and feels better. No head injury or LOC. Feeling better but still anxious. WIll order ekg, poc. Currently COVID + but no SOB/CP and feels like symptoms are improving. Deferred additional HPI, ROS and PE to primary provider. Discharge Plan Discharge Prescriptions: No Action magnesium 250 mg tablet 250 mg PO DAILY 10 Days Qty: 10 RF: 0 hydroxyzine HCl 25 mg tablet 25 mg PO BID PRN (Reason: anxiety) Qty: 14 RF: 0
--- NOTE | 2020-10-23 14:32 | ECG_ITS ---
Test Reason : SYNCOPE Blood Pressure : / mmHG Vent. Rate : 080 BPM Atrial Rate : 080 BPM P-R Int : 160 ms QRS Dur : 082 ms QT Int : 408 ms P-R-T Axes : 053 -28 027 degrees QTc Int : 470 ms Normal sinus rhythm Normal ECG When compared with ECG of 12-JUN-2020 19:15, No significant change was found Referred By: Ana Lilia Meléndez Electronically Signed By:KELLY WILKINSON
--- NOTE | 2020-10-23 17:35 | ED_ITS ---
HPI - Syncope General Chief Complaint: General Medical Stated Complaint: Dizziness, Nausea Time Seen by Provider: 10/23/20 14:30 Source: patient Mode of arrival: ambulatory Limitations: no limitations History of Present Illness HPI narrative: 30-year-old female tested COVID positive approximately 2 weeks ago presents with tachycardia, near syncopal episode, shortness of breath on exertion. MD complaint: felt faint and almost passed out Onset (ago): day(s) (One) -: minutes(s) Prodromal symptoms: lightheaded, palpitations, heart racing, shortness of breath, diaphoresis and nausea/vomiting Witnessed: Yes - by Bystander Context: other (While getting into the shower) Injuries sustained associated with event: none Current symptoms: lightheaded and shortness of breath Related Data Previous Rx's Medication Instructions Recorded hydroxyzine HCl 25 mg PO BID PRN #14 tab 05/17/20 magnesium 250 mg PO DAILY 10 Days #10 tab 05/17/20 Allergies Allergy/AdvReac Type Severity Reaction Status Date / Time No Known Allergies Allergy Verified 06/12/20 21:00 Review of Systems Review of Systems: Constitutional: No Fever, No Chills ENT/Mouth: No Hoarseness, No sore throat, No Rhinorrhea Eyes: No Redness, No Discharge, No Vision Changes Cardiovascular: No Chest Pain, positive SOB, positive Dyspnea on Exertion, positive palpitations, No Edema Respiratory: No Cough, No Sputum, no Wheezing, Gastrointestinal: No Nausea, No Vomiting, No Diarrhea, No abdominal Pain Genitourinary: No Dysuria, No Hematuria Musculoskeletal: No joint pain, No Myalgias Skin: No rash Neuro: No Weakness, No Numbness, No Headache Psych: No anxiety, depression Heme/Lymph: No Bruising, No Bleeding Endocrine: No Polyuria, No Polydipsia Yes all other systems are reviewed and are negative PMFSH Past Medical History Attestation statement: The following information was validated with the patient. Source: old records reviewed Medical History Anxiety Hypomagnesemia Palpitations Social History Social History Alcohol intake: never Advance Directives: No Advance Directives Information Provided: No Patient : No Physical Exam Vital Signs: Vital Signs: Last Vital Signs Temp 98 F 10/23/20 14:18 Pulse 100 10/23/20 14:18 Resp 18 10/23/20 14:18 BP 127/77 10/23/20 14:18 Pulse Ox 100 10/23/20 14:18 Body Mass Index 39.8 Appearance: Alert. Oriented X3. No acute distress. Eyes: Pupils equal, round and reactive to light. ENT: Pharynx normal. Neck: Normal inspection. Neck supple. CVS: Tachycardic heart rate and rhythm. Pulses normal. Respiratory: No respiratory distress. Breath sounds normal. Abdomen: Soft and nontender. Skin: Skin warm and dry. Normal skin color. Normal skin turgor. Extremities: No lower extremity edema. Neuro: No motor deficit. No sensory deficit. Course Course Course Narrative: 30-year-old female presents with positive COVID approximately 2 weeks ago, presents with tachycardia, shortness breath on exertion, and near syncopal episode. D-dimer 223, will order CT PE study. CT PE study negative for clotting, does show findings consistent with COVID-19. Will advise patient to continue to socially isolate as she is symptomatic. No further care at this time. She does understand that if symptoms persist that she needs to be re-evaluated. Patient verbalized understanding of and agrees to plan of care discharge home. MDM - Syncope Differential Diagnosis Differential diagnosis: Likely syncope due to orthostatic hypotension, vasovagal syncope, pulmonary embolism and dehydration Medical Records Attestation: I reviewed the patient's medical records. Lab Data Attestation: I reviewed the patient's lab results. Result diagrams: 10/23/20 18:28 10/23/20 18:28 Labs: Lab Results 10/23/20 10/23/20 10/23/20 Range/Units 17:40 18:28 18:28 WBC 4.7 L (4.8-10.8) X10*3/uL RBC 4.74 (4.20-5.50) X10*6/uL Hgb 13.3 (12.0-16.0) g/dl Hct 40.1 (37-47) % MCV 84.6 (80-98) fL MCH 28.1 (27.0-33.0) pg MCHC 33.2 (31.0-35.0) g/dl RDW 13.3 (11.0-16.0) % Plt Count 170 D (160-400) X10*3/uL MPV 10.1 (9.4-12.3) fL Immature Gran % (Auto) 0.6 H (0.0-0.4) % Neut % (Auto) 58.6 (45-73) % Lymph % (Auto) 34.0 (20-40) % [place] % (Auto) 6.4 (2-11) % Eos % (Auto) 0.2 (0-4) % Baso % (Auto) 0.2 (0-2) % Lymph # (Auto) 1.6 (1.2-4.9) X10*3/uL [place] # (Auto) 0.3 (0.1-1.2) X10*3/uL Eos # (Auto) 0.0 (0.0-0.4) X10*3/uL Baso # (Auto) 0.0 (0.0-0.2) X10*3/uL Abs Immat Gran (auto) 0.03 (0.00-0.03) X10*3/uL Absolute Neuts (auto) 2.7 (2.0-8.3) X10*3/uL Absolute Nucleated RBC 0.000 (0.0-0.012) X10*3/uL Nucleated RBC % (auto) 0.0 (0.0-0.2) /100WBC D-Dimer NG/ML Sodium 143 (135-145) mmol/L Potassium 3.9 (3.3-5.1) mmol/L Chloride 107 (96-108) mmol/L Carbon Dioxide 27 (22-29) mmol/L Anion Gap 13 (12-20) BUN 8 L (9-16) mg/dL Creatinine 0.65 (0.5-1.4) mg/dL Estim Creat Clear Calc 145.6 Estimated GFR > 60 POC Glucose 79 (60-115) mg/dL Random Glucose 96 (60-115) mg/dL Calcium 9.3 (8.4-10.2) mg/dL Urine Color Urine Appearance Urine pH (5.0-8.0) Ur Specific [place] (1.005-1.025) Urine Protein (NEG-TRACE) MG/DL Urine Glucose (UA) (NEG) MG/DL Urine Ketones (NEG) MG/DL Urine Blood (NEG) Urine Nitrite (NEG) Ur Leukocyte Esterase (NEG) Urine RBC (0) /HPF Urine WBC (0-4) /HPF Ur Squamous Epith Cells /LPF Urine Bacteria /LPF Urine Test (NEGATIVE) 10/23/20 10/23/20 10/23/20 Range/Units 18:28 19:09 19:09 WBC (4.8-10.8) X10*3/uL RBC (4.20-5.50) X10*6/uL Hgb (12.0-16.0) g/dl Hct (37-47) % MCV (80-98) fL MCH (27.0-33.0) pg MCHC (31.0-35.0) g/dl RDW (11.0-16.0) % Plt Count (160-400) X10*3/uL MPV (9.4-12.3) fL Immature Gran % (Auto) (0.0-0.4) % Neut % (Auto) (45-73) % Lymph % (Auto) (20-40) % [place] % (Auto) (2-11) % Eos % (Auto) (0-4) % Baso % (Auto) (0-2) % Lymph # (Auto) (1.2-4.9) X10*3/uL [place] # (Auto) (0.1-1.2) X10*3/uL Eos # (Auto) (0.0-0.4) X10*3/uL Baso # (Auto) (0.0-0.2) X10*3/uL Abs Immat Gran (auto) (0.00-0.03) X10*3/uL Absolute Neuts (auto) (2.0-8.3) X10*3/uL Absolute Nucleated RBC (0.0-0.012) X10*3/uL Nucleated RBC % (auto) (0.0-0.2) /100WBC D-Dimer 223 NG/ML Sodium (135-145) mmol/L Potassium (3.3-5.1) mmol/L Chloride (96-108) mmol/L Carbon Dioxide (22-29) mmol/L Anion Gap (12-20) BUN (9-16) mg/dL Creatinine (0.5-1.4) mg/dL Estim Creat Clear Calc Estimated GFR POC Glucose (60-115) mg/dL Random Glucose (60-115) mg/dL Calcium (8.4-10.2) mg/dL Urine Color YELLOW Urine Appearance HAZY Urine pH 5.5 (5.0-8.0) Ur Specific [place] 1.020 (1.005-1.025) Urine Protein NEG (NEG-TRACE) MG/DL Urine Glucose (UA) NEG (NEG) MG/DL Urine Ketones NEG (NEG) MG/DL Urine Blood 3+ H (NEG) Urine Nitrite NEG (NEG) Ur Leukocyte Esterase NEG (NEG) Urine RBC 15-29 H (0) /HPF Urine WBC 0-2 (0-4) /HPF Ur Squamous Epith Cells TRACE /LPF Urine Bacteria NONE /LPF Urine Test NEGATIVE (NEGATIVE) Imaging Data CT PE study: Attestation: I personally reviewed and interpreted this imaging study as follows: Radiologist's impression: FINDINGS: Respiratory motion artifact significantly degrades image quality. QUALITY OF STUDY/CONTRAST BOLUS: Satisfactory. PULMONARY ARTERIES: No central or segmental emboli visualized. More distal subsegmental emboli are difficult to exclude given the degree of motion artifact THORACIC AORTA: No aneurysm or dissection. LUNG: Motion artifact in the lungs degrades image quality. There are bilateral patchy consolidative and groundglass opacities. PLEURA: No pleural effusion or pneumothorax. MEDIASTINUM: Normal heart size. No pericardial effusion. No hilar or mediastinal lymphadenopathy. No evidence of septal bowing or right heart strain. CHEST WALL/AXILLA: No axillary or internal mammary lymphadenopathy. OSSEOUS STRUCTURES: No acute or suspicious osseous abnormality. UPPER ABDOMEN: Unremarkable. No reflux of contrast into the hepatic veins to suggest elevated right heart pressures. CT/CT angio chest PE protocol IMPRESSION: Limited exam due to respiratory motion artifact. No central or segmental pulmonary emboli. Bilateral mixed consolidative and groundglass opacities concerning for an underlying infectious process including atypical infectious processes. VTE: negative ECG Data ECG interpretation date: 10/23/20 ECG interpretation time: 17:46 Prior ECG tracings: available for review Interpretation: Vent. rate 80 BPM OK interval 160 ms QRS duration 82 ms QT/QTc 408/470 ms P-R-T axes 53 -28 27 Normal sinus rhythm Normal ECG When compared with ECG of 12-JUN-2020 19:15, No significant change was found Scores [place] PE Heart rate > 100 p/min: 1.5 Immobilization or surgery within 4 weeks: 1.5 Score: 3.0 2-tier Risk: likely risk (17-53%) Discharge Plan Discharge Clinical Impression: COVID-19, Tachycardia, Near syncope Patient Disposition: Home, Self-Care Instructions: Near Syncope (ED), COVID-19 (Coronavirus Disease 2019) (ED) Additional Instructions: You were evaluated for symptoms consistent with COVID-19, tachycardia and near syncope. Your lab values showed an elevated D-dimer, which is an indication for risk of blood clot. We performed a CT pulmonary embolism scan of the chest, you do not have any blood clots in the lungs. Please follow-up with primary care physician, it was noted that your blood sugar was 79. While 79 is normal, this number is on the lower side of normal. Please consider nutritional consult. Thank you for choosing this emergency department for evaluation. Please follow-up with primary care physician as needed. Return to the emergency department for any new, concerning, or worsening symptoms. Prescriptions: No Action magnesium 250 mg tablet 250 mg PO DAILY 10 Days Qty: 10 RF: 0 hydroxyzine HCl 25 mg tablet 25 mg PO BID PRN (Reason: anxiety) Qty: 14 RF: 0 Stand Alone Forms: Work/School Release Interventions: ED Discharge Assessment Last Done: 10/23/20 22:10 Discharge Date/Time: 10/23/20 21:30
[2020-10-23 17:54] LABS: Glucose, Whole Blood 79 mg/dL (60-115)
[2020-10-23 18:36] LABS: MANUAL DIFF FLAG NO
[2020-10-23 18:55] LABS: D Dimer 223 NG/ML
[2020-10-23 18:56] LABS: Basophils Percent Auto 0.2 % (0-2); Eosinophils Percent Auto 0.2 % (0-4); Hematocrit 40.1 % (37-47); Hemoglobin 13.3 g/dl (12.0-16.0); Imm Gran Abs Auto 0.03 X10*3/uL (0.00-0.03); Imm Gran Pct Auto 0.6 % (0.0-0.4); Lymphocytes Absolute Auto 1.6 X10*3/uL (1.2-4.9); Mean Corpuscular HGB Conc 33.2 g/dl (31.0-35.0); Mean Corpuscular Hemoglobin 28.1 pg (27.0-33.0); Mean Corpuscular Volume 84.6 fL (80-98); Mean Platelet Volume 10.1 fL (9.4-12.3); Monocytes Absolute Auto 0.3 X10*3/uL (0.1-1.2); Monocytes Percent Auto 6.4 % (2-11); Neutrophils Absolute Auto 2.7 X10*3/uL (2.0-8.3); Neutrophils Percent Auto 58.6 % (45-73); Platelet Count 170 X10*3/uL (160-400); Red Blood Count 4.74 X10*6/uL (4.20-5.50); Red Cell Distribution Width 13.3 % (11.0-16.0); White Blood Count 4.7 X10*3/uL (4.8-10.8)
[2020-10-23 19:09] LABS: Anion Gap 13 (12-20); Blood Urea Nitrogen 8 mg/dL (9-16); Calcium 9.3 mg/dL (8.4-10.2); Carbon Dioxide 27 mmol/L (22-29); Chloride 107 mmol/L (96-108); Creatinine Clr Calc Pharmacy 145.6; Estimated Glomerular Filt Rate > 60; Glucose Random 96 mg/dL (60-115); Potassium 3.9 mmol/L (3.3-5.1); Sodium 143 mmol/L (135-145)
[2020-10-23 19:21] LABS: Glucose Urine UA NEG (NEG); Leukocyte Esterase Urine NEG (NEG); Nitrite Urine NEG (NEG); PH 5.5 (5.0-8.0); Urine Blood 3+ (NEG); Urine Ketones NEG (NEG); Urine Protein NEG (NEG-TRACE)
[2020-10-23 19:22] LABS: Appearance Urine HAZY; Color Urine YELLOW
[2020-10-23 19:25] LABS: UPreg QC Valid YES; Urine Pregnancy NEGATIVE (NEGATIVE)
[2020-10-23 19:32] LABS: Squamous Epithelial Cell Urine TRACE /LPF; WBC Urine 0-2 /HPF (0-4)
[2020-10-23] MEDS: iohexoL 350 MG/ML 100 ML INFUS..BTL IV (19:44)
== END 2020-10-23 21:30 | disposition home or self-care (01) ==
PROVIDERS: Nurse Practitioner Family; Emergency Provider Emergency Medicine; PCP Physician Assistant Medical
DX: U07.1 COVID-19 (principal); R55 Syncope and collapse; R00.0 Tachycardia, unspecified
CPT/HCPCS: 36415; 71275; 80048; 81001; 81025; 82947; 85025; 85379; 93005; 99284; Q9967

== ENCOUNTER 2020-10-29 15:20 | Outpatient (REF) | payer OTHER, MEDICAID, SELFPAY | END 2020-10-29 15:21 | disposition home or self-care (01) | LOC: HO.LAB 15:20 | PROVIDERS: PCP Physician Assistant Medical; Visit Provider Internal Medicine | DX: Z20.822 Contact with and (suspected) exposure to COVID-19 (principal) | CPT/HCPCS: C9803; U0003; U0005 ==

== ENCOUNTER 2021-02-04 11:10 | Outpatient (REF) | payer OTHER, MEDICAID, SELFPAY | END 2021-02-04 11:11 | disposition home or self-care (01) | LOC: HO.LAB 11:10 | PROVIDERS: PCP Physician Assistant Medical; Visit Provider Internal Medicine | DX: Z20.822 Contact with and (suspected) exposure to COVID-19 (principal) | CPT/HCPCS: C9803; U0003; U0005 ==

== ENCOUNTER 2021-02-12 08:58 | Outpatient (REF) | payer OTHER, MEDICAID, SELFPAY | END 2021-02-12 08:59 | disposition home or self-care (01) | LOC: HO.LAB 08:58 | PROVIDERS: PCP Physician Assistant Medical; Visit Provider Internal Medicine | DX: Z20.822 Contact with and (suspected) exposure to COVID-19 (principal) | CPT/HCPCS: C9803; U0003; U0005 ==

== ENCOUNTER 2021-03-14 12:22 | Outpatient (REF) | payer OTHER, MEDICAID, SELFPAY | END 2021-03-14 12:23 | disposition home or self-care (01) | LOC: HO.LAB 12:22 | PROVIDERS: PCP Physician Assistant Medical; Visit Provider Internal Medicine | DX: Z20.822 Contact with and (suspected) exposure to COVID-19 (principal) | CPT/HCPCS: C9803; U0003; U0005 ==